=== PATIENT | female | born 1985 | race Caucasian/White ===

== ENCOUNTER 2024-04-08 13:17 | Emergency (ER) | payer OTHER ==
[~2024-04-08] VITALS: Ht 157.5 cm; Wt 59.1 kg
[~2024-04-08 13:17] MED LIST: PERCT PO
[2024-04-08 13:20] VITALS: TEMP 97.6
[2024-04-08] MEDS: TraMADol HCL 50 MG TABLET PO ONE (16:04)
[2024-04-08] MEDS: BACITRACIN 28 GM OINTMENT TP ONE (16:04)
[2024-04-08] MEDS: PERTUSS(ACELL),DIPH,TET/PF 0.5 ML SYRINGE [ADULT] IM. ONE (16:05)
[2024-04-08 16:30] VITALS: BP 165/84; PULSE 78; RESP 17; O2SAT 99
[2024-04-08] MEDS ORDERED: CEPH-558 PO (16:31)
== END 2024-04-08 16:59 | disposition home or self-care (01) ==
LOC: EMS 13:17
DX: S40.211A Abrasion of right shoulder, initial encounter (principal); V29.888A Rider (driver) (passenger) of other motorcycle injured in other specified transport accidents, initial encounter; Y93.89 Activity, other specified; Y92.89 Other specified places as the place of occurrence of the external cause; Y99.8 Other external cause status
CPT/HCPCS: 90471; 90715; 99283